=== PATIENT | female | born 1985 | race African-American/Black ===

== ENCOUNTER 2016-12-04 23:28 | Emergency (ER) | payer OTHER | END 2016-12-04 23:44 | disposition left against medical advice (07) | LOC: ER 23:28 | DX: Z53.21 Procedure and treatment not carried out due to patient leaving prior to being seen by health care provider (principal) ==

== ENCOUNTER 2016-12-05 16:44 | Emergency (ER) | payer OTHER ==
[~2016-12-05] VITALS: Ht 160 cm; Wt 61.0 kg
[2016-12-05] MEDS ORDERED: ALBUTEROL (0.083%) 2.5MG/3ML NEB HHN ONE (19:00)
[2016-12-05] MEDS ORDERED: KETOROLAC 60MG/2ML VIAL IM ONE (19:00)
[2016-12-05 23:38] VITALS: BP 115/70
== END 2016-12-06 00:32 | disposition home or self-care (01) ==
LOC: ER 16:59
DX: F41.1 Generalized anxiety disorder (principal); R06.02 Shortness of breath; F43.0 Acute stress reaction; R07.89 Other chest pain; M54.9 Dorsalgia, unspecified; Z63.79 Other stressful life events affecting family and household
CPT/HCPCS: 93005; 94640; 96372; 99283; J1885; J7611